=== PATIENT | male | born 1970 | race Caucasian/White ===

== ENCOUNTER 2016-11-06 16:28 | Emergency (ER) | payer OTHER ==
[~2016-11-06] VITALS: Ht 175.3 cm; Wt 85.7 kg
[2016-11-06 16:43] VITALS: BP 145/88
--- NOTE | 2016-11-06 17:50 | NUR ---
46M BIB SELF C/O RT LOWER BACK PAIN, RADIATING TO RLE, THROBBING, 10/10 X 10 DAYS; PT STATES WAS BENDING OVER TO PICK SOMETHING UP, AND HURT LOWER BACK; PT C/O LEFT LOWER MOLAR PAIN, ACHING, NON-RADIATING X 3 DAYS; PT A&OX4, PERRLA, BL LUNG SOUNDS CLEAR, RR EVEN/UNLABORED, SKIN IS WARM/DRY/INTACT AT THIS TIME; DENIES N/V/D AT THIS TIME; DENIES MEDICAL HX; PT RESTING IN CHAIR, POSITIONED FOR COMFORT; ER MD MADE AWARE OF STATUS. WILL CONTINUE TO MONITOR.
[2016-11-06 18:08] VITALS: BP 119/88
--- NOTE | 2016-11-06 18:08 | NUR ---
Patient discharged with v/s stable. Written and verbal after care instructions given and explained. Patient alert, oriented and verbalized understanding of instructions. Ambulatory with steady gait. All questions addressed prior to discharge. ID band removed. Patient advised to follow up with PMD. Rx of ROBAXIN 500MG TAB, MOTRIN 600MG TAB, TYLENOL W/ CODEINE NO. 3 & AMOXICILLIN 500MG CAP given. Patient educated on indication of medication including possible reaction and side effects. Opportunity to ask questions provided and answered.
== END 2016-11-06 18:08 | disposition home or self-care (01) ==
LOC: MED 16:28
DX: M54.16 Radiculopathy, lumbar region (principal); K04.7 Periapical abscess without sinus; Z88.1 Allergy status to other antibiotic agents

== ENCOUNTER 2016-11-19 13:37 | Emergency (ER) | payer OTHER ==
[~2016-11-19] VITALS: Ht 172.7 cm; Wt 77.1 kg
[2016-11-19 13:49] VITALS: BP 173/117
[2016-11-19] MEDS ORDERED: DEXAMETHASONE 10 MG/ML VIAL IM ONE (14:20)
[2016-11-19] MEDS ORDERED: CYCLOBENZAPRINE 10 MG TAB PO ONE (14:20)
[2016-11-19] MEDS ORDERED: KETOROLAC 60 MG/2 ML VIAL IM ONE (14:20)
--- NOTE | 2016-11-19 14:30 | NUR ---
PATIENT TO BED 4 AT THIS TIME.
--- NOTE | 2016-11-19 14:35 | NUR ---
PATIENT PRESENTS TO ED WITH BACK PAIN . PT STATES HE HAS BEEN HAVING PAIN FOR A MONTH . DENIES N/V/D; SKIN IS PINK/WARM/DRY; AAOX4 WITH EVEN AND STEADY GAIT; LUNGS CLEAR BL; HR EVEN AND REGULAR; PT DENIES ANY FEVER, CP, SOB, OR COUGH AT THIS TIME; PATIENT STATES PAIN OF 8/10 AT THIS TIME; VSS; PATIENT POSITIONED FOR COMFORT; HOB ELEVATED; BEDRAILS UP X2; BED DOWN. ER MD MADE AWARE OF PT STATUS.
[2016-11-19 15:23] VITALS: BP 127/77
--- NOTE | 2016-11-19 15:24 | NUR ---
Patient discharged with v/s stable. Written and verbal after care instructions given and explained. Patient alert, oriented and verbalized understanding of instructions. Ambulatory with steady gait. All questions addressed prior to discharge. ID band removed. Patient advised to follow up with PMD. Rx of NEURONTIN/FLEXERIL given. Patient educated on indication of medication including possible reaction and side effects. Opportunity to ask questions provided and answered.
== END 2016-11-19 15:24 | disposition home or self-care (01) ==
LOC: MED 13:37
DX: M54.16 Radiculopathy, lumbar region (principal); M54.40 Lumbago with sciatica, unspecified side; F17.200 Nicotine dependence, unspecified, uncomplicated; Z88.1 Allergy status to other antibiotic agents
CPT/HCPCS: 96372; 99284; J1100; J1885

== ENCOUNTER 2018-03-15 20:43 | Emergency (ER) | payer SELFPAY ==
[~2018-03-15] VITALS: Ht 172.7 cm; Wt 81.6 kg
[2018-03-15 20:49] VITALS: BP 133/71
--- NOTE | 2018-03-15 20:49 | NUR ---
PT PRESENTS TO ED WITH MUSCLE SPASM TO RIGHT PECTORAL MUSCLE WITHOUT PAIN. PT STATES SPASMS ARE ANNOYING. VSS. NO TRAUMA. A&OX4. POSITIONED IN BED FOR COMFORT. ER MD AWARE. CONTINUE TO MONITOR.
--- NOTE | 2018-03-15 20:49 | NUR ---
TO BED # 6 AMBULATORY , REPORT GIVEN TO NITISH GUO
--- NOTE | 2018-03-15 21:09 | NUR ---
Dr. Isidro evaluating patient at bedside.
[2018-03-15 21:31] VITALS: BP 123/68
--- NOTE | 2018-03-15 21:32 | NUR ---
Patient discharged with v/s stable. Written and verbal after care instructions given and explained. Patient alert, oriented and verbalized understanding of instructions. Ambulatory with steady gait. All questions addressed prior to discharge. ID band removed. Patient advised to follow up with PMD. Rx of VALIUM 5MG given. Patient educated on indication of medication including possible reaction and side effects. Opportunity to ask questions provided and answered.
== END 2018-03-15 21:32 | disposition home or self-care (01) ==
LOC: MED 20:43
DX: M62.838 Other muscle spasm (principal); F17.200 Nicotine dependence, unspecified, uncomplicated; Z88.8 Allergy status to other drugs, medicaments and biological substances
CPT/HCPCS: 99283

== ENCOUNTER 2018-08-11 05:20 | Emergency (ER) | payer SELFPAY ==
[~2018-08-11] VITALS: Ht 172.7 cm; Wt 81.6 kg
[2018-08-11 05:25] VITALS: BP 141/79
--- NOTE | 2018-08-11 05:28 | NUR ---
PT TAKEN TO BED 3
--- NOTE | 2018-08-11 05:34 | NUR ---
Patient being evaluated by Dr. Marshall at bedside.
--- NOTE | 2018-08-11 05:38 | NUR ---
Pt presents to ED with complaints of epigastric pain x2 weeks. Pt states "I feel like there is a ball in my stomach and there is cramping pain." Pt describes pain as intermittent. Denies N/V/D. Denies fever or chills. AOX4, ambulatory with steady gait. Speaking in full and clear sentences. NAD noted. VSS. Patient appears comfortable. Pt noted sitting in chair at bedside. Skin warm and dry, normal in color for ethnicity.
[2018-08-11] MEDS ORDERED: DICYCLOMINE HCL LIQUID 20 MG, ALUMINUM HYD/MAG/SIMETHICONE 30 ML, LIDOCAINE VISCOUS 2% ... PO ONE ×3 (05:40)
[2018-08-11] MEDS ORDERED: FAMOTIDINE 20 MG TAB PO ONE (05:40)
[2018-08-11 06:43] VITALS: BP 141/79
--- NOTE | 2018-08-11 06:44 | NUR ---
Patient discharged with v/s stable. Written and verbal after care instructions given and explained. Patient alert, oriented and verbalized understanding of instructions. Ambulatory with steady gait. All questions addressed prior to discharge. ID band removed. Patient advised to follow up with PMD. Rx of Bactrim DS and Prilosec 40mg given. Patient educated on indication of medication including possible reaction and side effects. Opportunity to ask questions provided and answered.
== END 2018-08-11 06:44 | disposition home or self-care (01) ==
LOC: MED 05:20
DX: K29.70 Gastritis, unspecified, without bleeding (principal); J32.9 Chronic sinusitis, unspecified; F41.9 Anxiety disorder, unspecified; F15.90 Other stimulant use, unspecified, uncomplicated; F17.210 Nicotine dependence, cigarettes, uncomplicated; Z88.0 Allergy status to penicillin; Z88.1 Allergy status to other antibiotic agents
CPT/HCPCS: 99283

== ENCOUNTER 2019-06-09 01:02 | Emergency (ER) | payer OTHER ==
[~2019-06-09] VITALS: Ht 172.7 cm; Wt 79.4 kg
[2019-06-09 01:25] VITALS: BP 127/91
--- NOTE | 2019-06-09 01:25 | NUR ---
Patient ambulated to bed 11.
--- NOTE | 2019-06-09 01:33 | NUR ---
ASSESSMENT COMPLETED AT THIS TIME. PATIENT SITTING UP IN BED. BED IN LOW LOCKED POSTION. NO NEEDS ADDRESSED AT THIS TIME. AWAITING ASSESSMENT BY JAE.
[2019-06-09] MEDS ORDERED: VANCOMYCIN 1,000 MG in DEXTROSE 5% 250 ML IV ONE (02:30)
--- NOTE | 2019-06-09 02:30 | NUR ---
PATIENT PROVIDED WITH BLANKET. NO OTHER NEEDS STATED AT THIS TIME.
[2019-06-09] MEDS ORDERED: VANCOMYCIN 1,000 MG VIAL ONE (02:47)
--- NOTE | 2019-06-09 03:50 | NUR ---
IV abx running, patient sleeping in bed. even chest rise and fall.
[2019-06-09 04:39] VITALS: BP 115/87
--- NOTE | 2019-06-09 04:39 | NUR ---
Patient discharged with v/s stable. Written and verbal after care instructions given and explained. Patient alert, oriented and verbalized understanding of instructions. Ambulatory with steady gait. All questions addressed prior to discharge. ID band removed. Patient advised to follow up with PMD. Rx of batrim kechapito given. Patient educated on indication of medication including possible reaction and side effects. Opportunity to ask questions provided and answered.
== END 2019-06-09 04:39 | disposition home or self-care (01) ==
LOC: MED 01:02
DX: L73.2 Hidradenitis suppurativa (principal); Z88.0 Allergy status to penicillin; Z88.1 Allergy status to other antibiotic agents
CPT/HCPCS: 96365; 96366; 99283; J3370

== ENCOUNTER 2021-06-18 17:33 | Emergency (ER) | payer OTHER ==
[~2021-06-18] VITALS: Ht 180.3 cm; Wt 79.4 kg
[2021-06-18 18:19] VITALS: BP 136/88
[2021-06-18 18:26] VITALS: BP 136/88
--- NOTE | 2021-06-18 18:30 | NUR ---
NO NURSING CARE RENDERED.Patient discharged with v/s stable. Written and verbal after care instructions given and explained. Patient alert, oriented and verbalized understanding of instructions. Police with steady gait. All questions addressed prior to discharge. ID band removed. Patient advised to follow up with PMD. NO Rx given. Patient educated on indication of medication including possible reaction and side effects. Opportunity to ask questions provided and answered.
== END 2021-06-18 18:30 ==
LOC: MED 17:33
DX: S09.90XA Unspecified injury of head, initial encounter (principal); Z88.0 Allergy status to penicillin; Z88.1 Allergy status to other antibiotic agents; W22.8XXA Striking against or struck by other objects, initial encounter; Y93.89 Activity, other specified; Y92.89 Other specified places as the place of occurrence of the external cause; Y99.8 Other external cause status
CPT/HCPCS: 99283

== ENCOUNTER 2022-08-13 21:39 | Emergency (ER) | payer MEDICAID, OTHER ==
[~2022-08-13] VITALS: Ht 172.7 cm; Wt 87.1 kg
[2022-08-13 21:43] VITALS: BP 120/57
[2022-08-14 01:48] LABS: BASOPHILS # (AUTO) 0.1 K/uL (0.00-0.22); BASOPHILS % (AUTO) 0.9 % (0.0-2.0); EOSINOPHILS # (AUTO) 0.2 K/uL (0-0.4); EOSINOPHILS % (AUTO) 2.5 % (0.0-4.0); HEMATOCRIT 44.7 % (36-52); HEMOGLOBIN 15.2 g/dL (12.0-18.0); LYMPHOCYTES # (AUTO) 2.6 K/uL (2.0-11.5); LYMPHOCYTES % (AUTO) 29.5 % (20.5-51.1); MEAN CORPUSCULAR HEMOGLOBIN 30 pg (27-31); MEAN CORPUSCULAR HGB CONC 34 g/dL (33-37); MEAN CORPUSCULAR VOLUME 88.9 fL (80-94); MONOCYTES # (AUTO) 0.8 K/uL (0.8-1.0); NEUTROPHILS # (AUTO) 5.2 K/uL (1.8-7.7); NEUTROPHILS % (AUTO) 58.1 % (42.2-75.2); PLATELET COUNT (AUTO) 371 K/uL (140-450); RED BLOOD CELL COUNT(AUTO) 5.03 MIL/uL (4.20-6.10); RED CELL DISTRIBUTION WIDTH 12.9 % (11.6-13.7)
[2022-08-14 02:25] LABS: ALBUMIN 3.9 g/dL (3.4-5.0); ANION GAP 10.4 (8-16); CARBON DIOXIDE 31.2 mmol/L (21-32); CREATININE 1.1 mg/dL (0.6-1.3); POTASSIUM 3.6 mmol/L (3.5-5.1); TOTAL BILIRUBIN 0.4 mg/dL (0.0-1.0)
[2022-08-14] MEDS ORDERED: BENZ200C4 PO (04:09)
[2022-08-14] MEDS ORDERED: DOXY-745 PO (04:09)
[2022-08-14 04:17] VITALS: BP 122/74
== END 2022-08-14 04:16 | disposition home or self-care (01) ==
LOC: MED 21:39
DX: R04.2 Hemoptysis (principal); J40 Bronchitis, not specified as acute or chronic; Z20.822 Contact with and (suspected) exposure to COVID-19; F17.210 Nicotine dependence, cigarettes, uncomplicated; Z71.6 Tobacco abuse counseling; Z79.899 Other long term (current) drug therapy; Z79.2 Long term (current) use of antibiotics; Z88.0 Allergy status to penicillin; Z88.1 Allergy status to other antibiotic agents
CPT/HCPCS: 36415; 71045; 71275; 80053; 83880; 84484; 85025; 87426; 93005; 99285; Q9967

== ENCOUNTER 2022-09-03 22:38 | Emergency (ER) | payer MEDICAID ==
[~2022-09-03] VITALS: Ht 172.7 cm; Wt 86.2 kg
[~2022-09-03 22:38] MED LIST: BENZ200C4 PO; DOXY-745 PO
[2022-09-03 22:40] VITALS: BP 148/83
--- NOTE | 2022-09-03 22:44 | NUR ---
TO LOBBY FOLLOWING TRIAGE
--- NOTE | 2022-09-04 01:08 | NUR ---
PT TAKEN TO BED 7
[2022-09-04] MEDS ORDERED: LIDOCAINE 2% 1000 MG/50 ML VIAL INJ ONE (01:10)
[2022-09-04] MEDS ORDERED: CLIN300C73 PO (01:25)
[2022-09-04] MEDS ORDERED: IBUP-2213 PO (01:25)
--- NOTE | 2022-09-04 01:32 | NUR ---
Dr. Ledezma examining patient.
[2022-09-04 02:05] VITALS: BP 148/83
--- NOTE | 2022-09-04 02:05 | NUR ---
Patient discharged. Written and verbal after care instructions given and explained. Patient alert, oriented and verbalized understanding of instructions. Ambulatory with steady gait. All questions addressed prior to discharge. ID band removed. Patient advised to follow up with PMD. Rx of Clindamycin HCL and Ibuprofen given. Patient educated on indication of medication including possible reaction and side effects. Opportunity to ask questions provided and answered.
== END 2022-09-04 02:05 | disposition home or self-care (01) ==
LOC: MED 22:38
DX: L02.212 Cutaneous abscess of back [any part, except buttock and flank] (principal); F17.200 Nicotine dependence, unspecified, uncomplicated; Z71.6 Tobacco abuse counseling; Z79.899 Other long term (current) drug therapy; Z79.1 Long term (current) use of non-steroidal anti-inflammatories (NSAID); Z79.2 Long term (current) use of antibiotics; Z88.0 Allergy status to penicillin; Z88.1 Allergy status to other antibiotic agents
CPT/HCPCS: 10060; 99283; J2001

== ENCOUNTER 2023-01-15 00:45 | Emergency (ER) | payer MEDICAID ==
[~2023-01-15] VITALS: Ht 172.7 cm; Wt 83.9 kg
[~2023-01-15 00:45] MED LIST changes: +CLIN300C73 PO; +IBUP-2213 PO
[2023-01-15 01:00] VITALS: BP 109/75; PULSE 85; RESP 17; TEMP 98; O2SAT 96
--- NOTE | 2023-01-15 01:03 | NUR ---
TO LOBBY A/W BED AMBULATORY
--- NOTE | 2023-01-15 02:50 | NUR ---
Note nereidaone in EDM - 01/15/23 at 0257 by [id number] PO challenge done. no episodes of vomiting, pt denies any nausea. ERMD made aware.
[2023-01-15] MEDS ORDERED: AMOX1TAB8 PO (02:53)
[2023-01-15] MEDS ORDERED: IBUP-2218 PO (02:53)
[2023-01-15] MEDS ORDERED: ACET-10509 PO (02:53)
[2023-01-15] MEDS ORDERED: AMOXIL/CLAVULANATE 875/125 MG 1 TAB PO ONE (02:55)
[2023-01-15 03:08] VITALS: BP 109/75; PULSE 85; RESP 17; TEMP 98; O2SAT 96
--- NOTE | 2023-01-15 03:09 | NUR ---
Patient discharged with v/s stable. Written and verbal after care instructions given and explained. New rx tylenol and amox-clav and ibuprofen. Patient verbalized understanding. Ambulatory with steady gait. All questions addressed prior to discharge. Advised to follow up with PMD.
== END 2023-01-15 03:09 | disposition home or self-care (01) ==
LOC: MED 00:45
DX: K04.7 Periapical abscess without sinus (principal); Z79.899 Other long term (current) drug therapy; Z88.0 Allergy status to penicillin; Z88.1 Allergy status to other antibiotic agents
CPT/HCPCS: 99283

== ENCOUNTER 2023-02-09 10:43 | Emergency (ER) | payer MEDICAID ==
[~2023-02-09] VITALS: Ht 172.7 cm; Wt 81.6 kg
[~2023-02-09 10:43] MED LIST changes: +ACET-10509 PO; +AMOX1TAB8 PO; +IBUP-2218 PO
[2023-02-09 10:55] VITALS: BP 146/116; PULSE 101; RESP 20; TEMP 98.3; O2SAT 99
[2023-02-09 11:21] VITALS: BP 146/116; PULSE 101; RESP 20; TEMP 98.3
[2023-02-09 11:22] VITALS: O2SAT 92
[2023-02-09] MEDS ORDERED: LIDOCAINE 1% 500 MG/ 50 ML VIAL INJ ONE (11:40)
[2023-02-09] MEDS ORDERED: ACETAMINOPHEN 325 MG TAB PO ONE (11:40)
[2023-02-09] MEDS ORDERED: LIDOCAINE MPF 1% 5 ML ONE (12:48)
[2023-02-09] MEDS ORDERED: NAPR-1704 PO (12:58)
== END 2023-02-09 13:08 | disposition home or self-care (01) ==
LOC: MED 10:43
DX: S01.01XA Laceration without foreign body of scalp, initial encounter (principal); J20.9 Acute bronchitis, unspecified; F17.210 Nicotine dependence, cigarettes, uncomplicated; W22.8XXA Striking against or struck by other objects, initial encounter; Y93.89 Activity, other specified; Y92.89 Other specified places as the place of occurrence of the external cause; Y99.8 Other external cause status
CPT/HCPCS: 12002; 70450; 71045; 99284; J2001